=== PATIENT | born 2000 | race Two or more races ===

== ENCOUNTER 2021-07-20 12:52 | Outpatient (REF) | payer OTHER, SELFPAY | END 2021-07-20 12:53 | disposition home or self-care (01) | LOC: HO.LAB 12:52 | PROVIDERS: Visit Provider Internal Medicine | DX: Z20.822 Contact with and (suspected) exposure to COVID-19 (principal) | CPT/HCPCS: C9803; U0003; U0005 ==

== ENCOUNTER 2021-08-02 15:10 | Outpatient (REF) | payer OTHER, SELFPAY ==
[2021-08-02 16:02] LABS: COVID-19 Test Negative
== END 2021-08-02 15:11 | disposition home or self-care (01) ==
LOC: HO.LAB 15:10
PROVIDERS: Visit Provider Internal Medicine
DX: Z20.822 Contact with and (suspected) exposure to COVID-19 (principal)
CPT/HCPCS: 36415; 87635; C9803